=== PATIENT | male | born 1990 | race African-American/Black ===

== ENCOUNTER 2025-07-24 18:13 | Emergency (ER) | payer BC, SELFPAY ==
[2025-07-24 18:30] VITALS: BP 126/91; PULSE 117; RESP 18; TEMP 38.5; O2SAT 94; BMI 33.0
[2025-07-24] MEDS: IBUPROFEN 400 MG TABLET 800 MG PO (19:44)
[2025-07-24] MEDS: DOXYCYCLINE HYCLATE 100 MG PO (19:44)
--- NOTE | 2025-07-24 23:50 | ED_ITS ---
HPI - General Adult General Chief complaint: Skin/Abscess/Foreign Body Stated complaint: Neck Cyst Time Seen by Provider: 07/24/25 18:40 Source: patient Mode of arrival: ambulatory Limitations: no limitations History of Present Illness HPI narrative: 35-year-old male presents to the emergency department for evaluation of infected skin lesion, has been present for about 2-3 years. Reports that he has had this removed or drained more so once before but it did come back. It had really bothered him until about 4 days ago when it started becoming more tender. Now cannot sleep because he cannot get comfortable. He has tried taking [id number] Tylenol and ibuprofen. He started getting a fever, sweats and chills this morning, prompting him to come to the ED. Has not been placed on antibiotics received any treatment for this thus far. Other than the fever, no other systemic symptoms. There is no shortness of breath, no nausea vomiting, no other open sores or ulcers. He denies a history of resistant infections. He is not immunocompromised. He reports benign past medical history, no long-term health problems. No long- term medications, no allergies. ROS is notable for the skin lesion on the back of the neck only, otherwise denies any other skin, generalized, hematologic or musculoskeletal changes. No neurological changes either. Related Data Home Medications ?Medication ?Instructions ?Recorded ?Confirmed No Known Home Medications 07/24/2502/12 Allergies Allergy/AdvReac Type Severity Reaction Status Date / Time No Known Drug Allergies Allergy Verified 07/24/25 18:38 Exam Const: Vital Signs, click to edit/add: Vital Signs - 24 hr 07/24/25 18:30 Temperature 101.3 F H Pulse Rate [Right Pulse Oximeter] 117 H Respiratory Rate 18 Blood Pressure [Ri ght Upper Arm] 126/91 H Pulse Oximetry 94 Oxygen Delivery Me thod Room Air Documenting provider has reviewed patient's vital signs: yes Common normals: no apparent distress and alert General appearance: cooperative Other: He is a little anxious but can be redirected. HENMT: Common normals: normocephalic, moist oral mucous membranes and oropharynx normal Head and scalp: normocephalic Face and sinus: normal facial exam Mouth: oral and palatal mucosa normal Throat: posterior oropharynx normal Eye: Common normals: conjunctivae normal General eye: normal appearance of both eyes Conjunctiva: conjunctiva(e) normal Neck & C-Spine: Common normals: full ROM and no lymphadenopathy Other: Posterior neck right along see 8 has a 4 cm tall by 6 cm wide area of redness, warmth, tenderness and fluctuance suspicious for a sebaceous cyst. It is markedly inflamed. There is scarred area 1 cm in the direct center of this that was likely the area of previous drainage. Resp: Common normals: normal respiratory effort, no use of accessory muscles and clear to auscultation bilaterally Effort & inspection: able to speak in complete sentences Auscultation: clear to auscultation bilaterally Cardio: Common normals: regular rate, regular rhythm, S1 normal heart sound, S2 normal heart sound and no murmurs Rate: regular rate Rhythm: regular rhythm Heart sounds: S1 normal and S2 normal Neuro: Sensorium/orientation: alert Speech: speech normal Motor exam: strength 5/5 throughout Psych: Attitude: engaged Mood and affect: anxious Insight: insight good Judgement: judgment good Skin: Narrative: Other than the skin lesion on the back of the neck, no other areas of skin inflammation or rash noted. Course Course ED Course: Patient noted to be mildly tachycardic and febrile. Tachycardia likely from the fever. Has an obvious source for the infection but no hypotension that would suggest sepsis. Do not recommend blood work. Counseled patient that in an area of infected cyst that has been previously drained there tends to be a lot of scar tissue and the chances of me being able to get all of the capsule out to prevent recurrences unfortunately fairly low. He is likely to get excellent improvement in symptoms from drainage and likely complete treatment of any abscess or infection contained within. He was agreeable to incision and drainage. Reevaluation(s) Reevaluation #1: Verbal consent obtained, see separate procedure note. Wound was cleansed with Betadine x3 and lidocaine with epinephrine total of 5 mL was used for anesthesia, large area injected. Through the previous surgical site, an 11 blade was used to dissect down to the level of the cyst. There was quite a bit of scar tissue encountered. Attempt with a curved Iris was made around the cyst to see if I could free it to allow it to be expressed intact or to try to remove most of the capsule, unfortunately the cyst did rupture. Markedly malodorous keratin material an meri purulent material was expressed. An impressive 80-100 mL total was expressed. It literally poured out. Continue to manipulate until all the keratin is material was removed. Did have about 10 mL of bleeding. Wound was examined with no further signs of keratinized material but it did look like there was still some capsule present. I tried to gently free this but it was scarred and adhered to the skin. Procedure was then completed, packed with about 18-20 inches of plain packing. Patient instructed on wound care. Packing was then covered with a folded 4 x 4 and then layers of large Band-Aids for compression. Hemostatic at the time of the procedure completion. Patient will start doxycycline 100 mg p.o. b.i.d. for 10 days, 1st dose given here in ED. wound culture sent. Symptoms should be markedly improving in 24 hours including resolution of fever. It is okay to use Tylenol and/or ibuprofen. If he is not starting to notice improvement after 24 hours, he should return to the ED for further workup and management. Patient is remove the current dressings, gauze covering and pull the packing in 36 hours. He will then wash gently with soap and water, cover with antibiotic ointment and large Band-Aids until the wound closes completely which will likely take a couple of weeks. Alarm symptoms reviewed that would warrant earlier ED follow-up if he has significant weakness or other signs of sepsis. He verbalizes understanding and agreement of plan. Vital Signs Vital signs: Initial Vital Signs Temperature 101.3 F H 07/24/25 18:30 Temperature Source Temporal Artery Scan 07/24/25 18:30 Pulse Rate 117 H 07/24/25 18:30 Pulse Rhythm Regular 07/24/25 18:30 Pulse Strength 3+ Normal 07/24/25 18:30 Respiratory Rate 18 07/24/25 18:30 Blood Pressure 126/91 H 07/24/25 18:30 Blood Pressure Mean 102 07/24/25 18:30 Blood Pressure Position Sitting 07/24/25 18:30 Pulse Oximetry 94 07/24/25 18:30 Oxygen Delivery Method Room Air 07/24/25 18:30 Vital Signs Temperature 101.3 F H 07/24/25 18:30 Pulse Rate 117 H 07/24/25 18:30 Respiratory Rate 18 07/24/25 18:30 Blood Pressure 126/91 H 07/24/25 18:30 Pulse Oximetry 94 07/24/25 18:30 Oxygen Delivery Method Room Air 07/24/25 18:30 Temperature 101.3 F H 07/24/25 18:30 Pulse Rate 117 H 07/24/25 18:30 Respiratory Rate 18 07/24/25 18:30 Blood Pressure 126/91 H 07/24/25 18:30 Pulse Oximetry 94 07/24/25 18:30 Oxygen Delivery Method Room Air 07/24/25 18:30 Medications Administered Medications: Discontinued Medications Generic Name Dose Route Start Last Admin Trade Name Liliana PRN Reason Stop Dose Admin Doxycycline Hyclate 100 mg 07/24/25 19:32 07/24/25 19:44 Doxycycline Hyclate 100 Mg PO 07/24/25 19:33 100 mg ONCE ONE Administration Ibuprofen 800 mg 07/24/25 19:32 07/24/25 19:44 Ibuprofen 400 Mg Tablet PO 07/24/25 19:33 800 mg ONCE ONE Administration Discharge Plan Discharge Clinical Impression: Infected epidermoid cyst Patient Disposition: Home, Self-Care Condition: Improved Instructions: Epidermal Inclusion Cysts (ED) Additional Instructions: As we discussed, your cyst was heavily infected. I was able to drain the cyst but unfortunately I was not able to get out the entire capsule due to the fact that it was so scarred down to your skin. Unfortunately this means that the cyst does have a higher rate of returning again some day. We have sent some of the infected material out for a culture, this will help us know if we need to switch antibiotics. In the meantime I have started on doxycycline you will take 1 pill 2 times daily. You have already been given your evening dose here in the emergency room, your next dose will be tomorrow morning. Most of the pharmacies are closed, so I have sent the prescription to the [facility] in the [facility]. Please pick this up and take as directed. You may have leftover pills. For pain, I recommend [id number] ibuprofen 600 mg every 6 hours. You may also use Tylenol in addition to this 1000 mg every 6 hours. It is okay to use gentle sleep aids like Benadryl or melatonin to help you sleep as well. For most people after drainage, things do start feeling markedly better within about 12 hours. I would expect her fever to be gone within 24 hours also. If you are getting more ill, please be re-evaluated in the emergency room. Packing has been placed into the wound. Leave this on until Saturday. On Saturday morning, remove all of the Band-Aids that have been applied, remove the gauze and pull all of the packing out completely. It will be quite bloody. Wash gently with soap and water and then apply antibiotic ointment and a large Band- Aid, changing daily. It will take a few weeks for this wound to heal up. You m ay resume all typical duties on Saturday. Activity Level: No Restrictions Discharge Diet: Regular Prescriptions: No Action No Known Home Medications Stand Alone Forms: [facility] Instructions Procedures I/D Type: abscess Site: neck Pre procedure diagnosis: Infected sebaceous cyst Post procedure diagnosis: Same, status post drainage, wound culture sent Written consent by: patient Name of person performing procedure: Manda Kowalski Anesthesia I&D: lidocaine 1% and with Epi (5 mL) Amount of anesthesia used (mls): 5 Technique: incised with #11 blade Amount of fluid expressed (mL): 100 Irrigation: No Packing used?: plain (18 in of quarter-inch plain packing) Estimated blood loss (if any): other (specify) (10 ml) Conclusion: patient tolerated procedure
== END 2025-07-24 20:20 | disposition home or self-care (01) ==
LOC: ED 20:14
PROVIDERS: Emergency Provider Family Medicine
DX: L72.0 Epidermal cyst (principal)
CPT/HCPCS: 10060; 87070; 87186; 99283; A9270